=== PATIENT | female | born 1955 | race African-American/Black ===

== ENCOUNTER 2024-07-13 20:07 | Emergency (ER) | payer OTHER ==
[2024-07-13 20:14] VITALS: BP 142/80; PULSE 65; RESP 18; TEMP 97.8; BMI 22.6
== END 2024-07-13 23:27 | disposition home or self-care (01) ==
LOC: JER 20:07
DX: S00.83XA Contusion of other part of head, initial encounter (principal); W22.09XA Striking against other stationary object, initial encounter
CPT/HCPCS: 70450-TC; 99284-25